=== PATIENT | male | born 1965 | race African-American/Black ===

== ENCOUNTER 2022-06-26 10:38 | Emergency (ER) | payer BC ==
[~2022-06-26] VITALS: Ht 175.3 cm; Wt 59.0 kg
--- NOTE | 2022-06-26 11:14 | NUR ---
ER at bedside examining patient.
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
[2022-06-26 11:20] VITALS: BP_SYST 127
--- NOTE | 2022-06-26 12:45 | NUR ---
Patient transported to radiology via wheelchair, accompanied by tech
[2022-06-26 13:26] VITALS: BP_SYST 127
--- NOTE | 2022-06-26 13:27 | NUR ---
Patient given written and verbal discharge instructions and verbalizes understanding. ER MD discussed with patient the results and treatment provided. Patient in stable condition. ID arm band removed. Rx of given. Patient educated on pain management and to follow up with PMD. Opportunity for questions provided and answered. Medication side effect fact sheet provided.
== END 2022-06-26 13:27 | disposition home or self-care (01) ==
LOC: SED 10:38
DX: S80.12XA Contusion of left lower leg, initial encounter (principal); Z79.899 Other long term (current) drug therapy; W21.03XA Struck by baseball, initial encounter; Y93.64 Activity, baseball; Y92.89 Other specified places as the place of occurrence of the external cause; Y99.8 Other external cause status
CPT/HCPCS: 93971; 99284